=== PATIENT | female | born 1975 | race Caucasian/White ===

== ENCOUNTER 2017-08-22 17:14 | Emergency (ER) | payer OTHER ==
[~2017-08-22] VITALS: Ht 162.6 cm; Wt 91.7 kg
[~2017-08-22 17:14] MED LIST: AUGMENTIN875 MG PO; CELEXA20 MG PO; Chromagen, Feogen, M PO; MOTRIN800 MG PO; Motrin PO; NOHOMEMEDS; NORCO 5/3251 TABLET PO; RISPERDAL1 MG PO
[2017-08-22 17:57] LABS: ADD MIUA? YES; BILIRUBIN NEGATIVE; BLOOD NEGATIVE; COLOR YELLOW ((YELLOW)); GLUCOSE (STRIP) NEGATIVE; KETONES NEGATIVE; LEUKOCYTES NEGATIVE; NITRITE NEGATIVE; PROTEIN (STRIP) NEGATIVE; SPECIFIC GRAVITY 1.023 (1.000-1.030)
[2017-08-22 18:12] LABS: EOSINOPHIL (%) 0.4 % (0-5); HEMATOCRIT 37.9 % (36.0-46.0); IMMATURE GRANULOCYTE (%) 0.3 % (0.0-0.7); INSTRUMENT ABS NEUTROPHIL CT 8.1 K/uL; MCH 28.7 PG (29.0-34.0); MCHC 33.2 G/DL (30.0-36.0); MCV 86.3 FL (83-99); MEAN PLAT.VOLUME 10.6 uM^3 (9.5-12.4); MONOCYTE (%) 5.9 % (3-12); MONOCYTE COUNT 0.6 K/uL (0-0.8); NEUTROPHIL (%) 83.3 % (45-76); NEUTROPHIL COUNT 8.1 K/uL (1.8-6.4); PLATELET COUNT 317 K/uL (156-360); RBC DIS.WIDTH-CV 13.2 % (11.8-14.6); RBC DIS.WIDTH-SD 41.3 % (39-53); RED BLOOD COUNT 4.39 M/uL (3.80-5.20); WHITE BLOOD COUNT 9.8 K/uL (4.1-10.2)
[2017-08-22 18:21] LABS: BACTERIA RARE /HPF; EPITHELIAL CELLS 1+ /HPF; MUCUS TRACE /LPF; RED BLOOD CELLS 0-5 /HPF (0-5); UNCLASSIFIED CRYSTALS 1+ /HPF; WHITE BLOOD CELLS 0-5 /HPF (0-5)
[2017-08-22 18:25] LABS: CHLORIDE 106 mEq/L (99-109); POTASSIUM 4.1 mEq/L (3.7-5.4); SODIUM 135 mEq/L (136-147)
[2017-08-22 18:26] LABS: GLUCOSE 108 mg/dL (70-99)
[2017-08-22 18:28] LABS: ANION GAP 7 MEQ/L (2-14)
[2017-08-22 18:30] LABS: GFR ESTIMATE (CALCULATED) > 59 mL/min/
[2017-08-22 18:31] LABS: UREA NITROGEN (BUN) 12 mg/dL (9-23)
[2017-08-22 19:56] VITALS: BP 117/95
[2017-08-22 20:05] LABS: QUANTITATIVE HCG < 4.0 MIU/ML
== END 2017-08-22 19:57 | disposition home or self-care (01) ==
LOC: EME 17:14
PROVIDERS: Physician Assistant
DX: R10.32 Left lower quadrant pain (principal)
CPT/HCPCS: 74176; 80048; 81003; 84702; 85025; 99281; 99284; J1885